=== PATIENT | female | born 1990 | race Caucasian/White ===

== ENCOUNTER → 2024-12-18 14:40 | Outpatient (CLI) | payer OTHER, SELFPAY ==
--- NOTE | 2024-12-18 | DI.RAD.S_ITS ---
PROCEDURE: XR FOOT LT MIN 3V INDICATIONS: FOOT PAIN TECHNIQUE: 3 views of the foot were acquired. COMPARISON: None. FINDINGS: Bones: No fractures or dislocations. No suspicious bony lesions. Joint spaces maintained. Normal alignment. Soft tissues: No tibiotalar joint effusion. Achilles tendon appears normal. IMPRESSION: Negative examination Dictated by: Joshua Portillo M.D. on 12/18/2024 at 17:17 Approved by: Joshua Portillo M.D. on 12/18/2024 at 17:18
--- NOTE | 2024-12-18 | DI.RAD.S_ITS ---
PROCEDURE: XR FOOT RT MIN 3V INDICATIONS: FOOT PAIN TECHNIQUE: 3 views of the foot were acquired. COMPARISON: None. FINDINGS: Bones: No fractures or dislocations. No suspicious bony lesions. Osseous bunion. Hallux valgus. No pes planus. Joint spaces maintained. Soft tissues: No tibiotalar joint effusion. Achilles tendon appears normal. IMPRESSION: Chronic findings as above. Dictated by: Joshua Portillo M.D. on 12/18/2024 at 17:18 Approved by: Joshua Portillo M.D. on 12/18/2024 at 17:18
== END ==
LOC: RAD 14:48
PROVIDERS: PCP Nurse Practitioner Gerontology; Referring Provider Podiatrist Foot & Ankle Surgery; Visit Provider Podiatrist Foot & Ankle Surgery
DX: M21.611 Bunion of right foot (principal); M20.11 Hallux valgus (acquired), right foot; M79.672 Pain in left foot
CPT/HCPCS: 73630